=== PATIENT | male | born 2000 | race Caucasian/White ===

== ENCOUNTER 2021-07-25 06:32 | Emergency (ER) | payer BC, OTHER ==
[~2021-07-25] VITALS: Ht 177.8 cm; Wt 108.0 kg
[2021-07-25] MEDS ORDERED: NS IV 1000 ML 1,000 ML IV STA (06:52)
[2021-07-25] MEDS ORDERED: hydrALAZINE (APESOLINE) 20 MG/ML VIAL IV STA (06:52)
[2021-07-25 07:01] LABS: MEAN CORPUSCULAR HEMOGLOBIN 29 pg (25-34)
[2021-07-25 07:02] LABS: BASOPHILS % (AUTO) 0 % (0-10); EOSINOPHILS % (AUTO) 2 % (0-10); HEMATOCRIT 47 % (40-54); LYMPHOCYTES % (AUTO) 48 % (12-44); MEAN CORPUSCULAR HGB CONC 34 g/dL (32-36); MEAN CORPUSCULAR VOLUME 83 fL (80-99); MEAN PLATELET VOLUME 9.7 fL (9.0-12.2); MONOCYTES % (AUTO) 9 % (0-12); NEUTROPHILS % (AUTO) 40 % (42-75); PLATELET COUNT 353 10^3/uL (130-400)
--- NOTE | 2021-07-25 07:02 | ED General ---
General Stated Complaint: NAUSEA;VOMITTING Source of Information: Patient, EMS (RAKAN REYES MD) History of Present Illness Date Seen by Provider: Jul 25, 2021 Time Seen by Provider: 06:36 Initial Comments 21-year-old male presenting with complaints of feeling dizzy and lightheaded. He states that this started suddenly for him around 5 AM. He does have a history of high blood pressure but has not been taking his medication since Thursday or Thursday since he has been working nights. He usually takes the medication at night and while working nights was not taking it. He follows with Dr. Carrion in the [facility] clinic. He states he takes 3 mg of guanfacine. He denied any blurry vision, chest pain, shortness of breath, nausea, vomiting, headache, numbness or tingling in his arms or legs, weakness in his arms or legs. He was feeling shaky and jittery. He was anxious and worried about what was going on so he called his supervisor instrument maintenance who told him to call [phone]. He works as a security system administrator at [employer] and is anxious to be released to go back to work tonight. Timing/Duration: 1-3 Hours Associated Systoms: No Chest Pain, No Cough, No Diaphoresis, No Fever/Chills, No Headaches, No Loss of Appetite, No Malaise, No Nausea/Vomiting, No Rash, No Seizure, No Shortness of Air, No Syncope, No Weakness (RAKAN REYES MD) Allergies and Home Medications Allergies Coded Allergies: No Known Drug Allergies (Unverified , 07/25/21) Patient Home Medication List Home Medication List Reviewed: Yes (RAKAN REYES MD) Review of Systems Review of Systems Constitutional: No chills; dizziness; No fever, No malaise EENTM: No blurred vision, No vision loss, No epistaxis, No nose congestion Respiratory: No cough, No short of breath Cardiovascular: No chest pain, No edema Gastrointestinal: No nausea, No vomiting Genitourinary: No dysuria Musculoskeletal: no symptoms reported Skin: No rash Psychiatric/Neurological: Anxiety; Denies Headache, Denies Numbness, Denies Paresthesia, Denies Tingling; Tremors; Denies Weakness Hematologic/Lymphatic: Denies Blood Clots (RAKAN REYES MD) All Other Systems Reviewed Negative Unless Noted: Yes (Negative excepted noted.) (RAKAN REYES MD) Past Qxdrtjs-Fisstf-Dznpfa Hx Patient Social History Tobacco Use?: No Substance use?: No Alcohol Use?: No (RAKAN REYES MD) Past Medical History Surgery/Hospitalization HX: Hypertension Surgeries: No Respiratory: No Cardiac: Yes Hypertension Neurological: No Genitourinary: No Gastrointestinal: No Musculoskeletal: No Endocrine: No HEENT: No (RAKAN REYES MD) Physical Exam Vital Signs Vital Signs - First Documented 07/25/21 06:35 Temp 36.8 Pulse 115 Resp 18 B/P (MAP) 161/99 (119) Pulse Ox 98 O2 Delivery Room Air (BARB MANJARREZ MD) Vital Signs Capillary Refill : (RAKAN REYES MD) Height, Weight, BMI Height: '" Weight: lbs. oz. kg; BMI Method: General Appearance: Anxious, Obese HEENT: PERRL/EOMI, Pharynx Normal Neck: Full Range of Motion, Normal Inspection, Non Tender, Supple Respiratory: Chest Non Tender, Lungs Clear, Normal Breath Sounds, No Accessory Muscle Use, No Respiratory Distress Cardiovascular: No Murmur, Normal Peripheral Pulses, Tachycardia Gastrointestinal: Normal Bowel Sounds, No Pulsatile Mass, Non Tender, Soft Rectal: Deferred Extremity: Normal Capillary Refill, Normal Inspection, No Calf Tenderness, No Pedal Edema Neurologic/Psychiatric: Alert, Oriented x3, fine grade operator II-XII Norm as Tested Skin: Normal Color, Warm/Dry (RAKAN REYES MD) Progress/Results/Core Measures Suspected Sepsis SIRS Temperature: Pulse: Respiratory Rate: Blood Pressure / Mean: (RAKAN REYES MD) Results/Orders Lab Results Laboratory Tests Test 07/25/21 06:40 Range/Units White Blood Count 7.0 4.3-11.0 10^3/uL Red Blood Count 5.59 H 4.30-5.52 10^6/uL Hemoglobin 16.0 13.3-17.7 g/dL Hematocrit 47 40-54 % Mean Corpuscular Volume 83 80-99 fL Mean Corpuscular Hemoglobin 29 25-34 pg Mean Corpuscular Hemoglobin Concent 34 32-36 g/dL Red Cell Distribution Width 13.1 10.0-14.5 % Platelet Count 353 130-400 10^3/uL Mean Platelet Volume 9.7 9.0-12.2 fL Immature Granulocyte % (Auto) 0 % Neutrophils (%) (Auto) 40 L 42-75 % Lymphocytes (%) (Auto) 48 H 12-44 % Monocytes (%) (Auto) 9 0-12 % Eosinophils (%) (Auto) 2 0-10 % Basophils (%) (Auto) 0 0-10 % Neutrophils # (Auto) 2.8 1.8-7.8 X 10^3 Lymphocytes # (Auto) 3.4 1.0-4.0 X 10^3 Monocytes # (Auto) 0.7 0.0-1.0 X 10^3 Eosinophils # (Auto) 0.2 0.0-0.3 10^3/uL Basophils # (Auto) 0.0 0.0-0.1 10^3/uL Immature Granulocyte # (Auto) 0.0 0.0-0.1 10^3/uL Prothrombin Time 13.4 12.2-14.7 SEC INR Comment 1.0 0.8-1.4 Activated Partial Thromboplast Time 31 24-35 SEC Sodium Level 138 135-145 MMOL/L Potassium Level 3.8 3.6-5.0 MMOL/L Chloride Level 102 98-107 MMOL/L Carbon Dioxide Level 23 21-32 MMOL/L Anion Gap 13 5-14 MMOL/L Blood Urea Nitrogen 9 7-18 MG/DL Creatinine 0.62 0.60-1.30 MG/DL Estimat Glomerular Filtration Rate 165 BUN/Creatinine Ratio 15 Glucose Level 110 H 70-105 MG/DL Calcium Level 9.8 8.5-10.1 MG/DL Corrected Calcium 8.5-10.1 MG/DL Magnesium Level 1.8 1.6-2.4 MG/DL Total Bilirubin 0.3 0.1-1.0 MG/DL Aspartate Amino Transf (AST/SGOT) 40 H 5-34 U/L Alanine Aminotransferase (ALT/SGPT) 83 H 0-55 U/L Alkaline Phosphatase 122 40-136 U/L Troponin I < 0.30 <0.30 NG/ML Pro-B-Type Natriuretic Peptide < 5.0 <75.0 PG/ML Total Protein 7.8 6.4-8.2 GM/DL Albumin 4.6 H 3.2-4.5 GM/DL (BARB MANJARREZ MD) Vital Signs/I&O 07/25/21 06:35 Temp 36.8 Pulse 115 Resp 18 B/P (MAP) 161/99 (119) Pulse Ox 98 O2 Delivery Room Air (BARB MANJARREZ MD) Vital Signs/I&O Capillary Refill : (RAKAN REYES MD) Progress Note : Progress Note Obtain basic labs as well as cardiac enzymes and electrocardiogram with chest x- ray to evaluate his hypertension. Ordered urine and urine drug screen with his hypertension and tachycardia. Give IV fluids for hydration. Try a dose of hydralazine to help with his hypertension. Differential diagnosis would include medication noncompliance, anxiety, viral illness, acute coronary syndrome, drug use Electrocardiogram shows sinus tachycardia with no ST elevation. He has no prior tracing available for comparison. Will pass care to Dr. Manjarrez at shift change pending labs and testing (RAKAN REYES MD) Progress Note : Progress Note I took over care of the patient pending his labs. His basic labs as well as cardiac biomarkers are normal. The patient is refusing the chest x-ray and urine study, saying he feels better. On reassessment he is well-appearing and no longer complaining of the same issues he came in for. I believe he is stable for discharge with outpatient follow-up. He was sent home with strict return precautions (BARB MANJARREZ MD) ECG Initial ECG Impression Date: Jul 25, 2021 Initial ECG Impression Time: 06:42 Initial ECG Rate: 108 Initial ECG Rhythm: S.Tach Initial ECG Comparisson: No Previous ECG Available Comment Sinus tachycardia with a heart rate of 108 bpm. OH interval 141 ms. QT interval 326 ms with a QTc interval 437 ms. There is no acute ST elevation. There is no prior tracing available for comparison. (RAKAN REYES MD) Diagnostic Imaging Diagonstic Imaging: Xray Plain Films/CT/US/NM/MRI: chest (RAKAN REYES MD) Transfer of Care Transfer of Care Time: 07:00 Care transferred to: Dr. Manjarrez (RAKAN REYES MD) Departure Impression Primary Impression: Elevated blood pressure reading with diagnosis of hypertension Disposition: 01 HOME, SELF-CARE Condition: Stable Departure-Patient Inst. Decision time for Depature: 07:43 (BARB MANJARREZ MD) Referrals: NO,LOCAL PHYSICIAN (PCP/Family) Primary Care Physician Patient Instructions: High Blood Pressure (DC) Add. Discharge Instructions: Please follow-up with your primary care provider to get a refill of your medication if you are out of it. Work/School Note: Work Release Form Date Seen in the Emergency Department: Jul 25, 2021 Return to Work: Jul 25, 2021 Restrictions: No Restrictions RAKAN REYES MD Jul 25, 2021 07:02 BARB MANJARREZ MD Jul 25, 2021 07:44
[2021-07-25 07:03] LABS: EOSINOPHILS # (AUTO) 0.2 10^3/uL (0.0-0.3); LYMPHOCYTES # (AUTO) 3.4 X 10^3 (1.0-4.0); MONOCYTES # (AUTO) 0.7 X 10^3 (0.0-1.0); NEUTROPHILS # (AUTO) 2.8 X 10^3 (1.8-7.8); PROTHROMBIN TIME PATIENT 13.4 SEC (12.2-14.7)
[2021-07-25 07:26] LABS: ALANINE AMINOTRANSFERASE 83 U/L (0-55); ALKALINE PHOSPHATASE 122 U/L (40-136); BILIRUBIN,TOTAL 0.3 MG/DL (0.1-1.0); BUN/CREATININE RATIO 15; CALCIUM 9.8 MG/DL (8.5-10.1); CARBON DIOXIDE 23 MMOL/L (21-32); CHLORIDE 102 MMOL/L (98-107); CREATININE SERUM 0.62 MG/DL (0.60-1.30); GFR ESTIMATED 165; GLUCOSE 110 MG/DL (70-105); MAGNESIUM 1.8 MG/DL (1.6-2.4); POTASSIUM 3.8 MMOL/L (3.6-5.0); SODIUM 138 MMOL/L (135-145); TOTAL PROTEIN 7.8 GM/DL (6.4-8.2)
[2021-07-25 07:27] LABS: ALBUMIN 4.6 GM/DL (3.2-4.5)
[2021-07-25 08:05] VITALS: BP 137/61
== END 2021-07-25 07:45 | disposition home or self-care (01) ==
LOC: ER FS 06:34
DX: I10 Essential (primary) hypertension (principal); E66.9 Obesity, unspecified
CPT/HCPCS: 36415; 80053; 83735; 83880; 84484; 85025; 85610; 85730; 93005

== ENCOUNTER → 2023-06-22 | Outpatient (CLI) | payer BC ==
[~2023-06-22] VITALS: Ht 177.8 cm; Wt 134.5 kg
[~2023-06-22] MED LIST: CHOL100L MC; GUAN1TAB21 PO; LEVO100C4 PO; MULT-974 PO; NALT1TAB PO
== END | disposition home or self-care (01) ==
LOC: PREOP 05:27
PROVIDERS: ATTEND Specialist
DX: Z01.818 Encounter for other preprocedural examination (principal)